=== PATIENT | male | born 1975 | race Caucasian/White ===

== ENCOUNTER 2017-12-26 02:10 | Emergency (ER) | payer SELFPAY ==
--- NOTE | 2017-12-26 02:23 | ED Physician Documentation ---
Chest Pain - HISTORIAN Historian: patient, paramedics - [facility] Chief Complaint: General Adult Onset: hours Timing: sudden onset Last known Well Date: 12/26/17 Last Known Well Time: 00:30 (between [id number]) Context: activity (sexual activity) Severity: moderate (5/10) Quality: pressure, tightness, sharp Chest Pain Radiation: arms (left) Chest Pain Signs/Symptoms: denies: nausea, vomiting Worsened By: exertion Relieved By: nothing Further Comments: yes (42 year old male patient brought in from [facility] with complaints of chest pain. Patient reports he began having chest pain after sexual intercourse between [id number]. Patient reports using a supplement called [employer]allyhood. Denies any other recreational drug use, denies ETOH intake tonight.) - ROS CONST: none MS/LYMPH: neck pain (chronic - related to surgery 4 months ago) GI/: none EYES/ENT: none SKIN/ENDO: none NEURO/PSYCH: none Comment: Patient denies any pain or complaints except as noted in Further comments. - PAST HX [place] risk factors: hypertension DVT/PE Risk Factors: none TAD/AAA risk factors: none Neuro deficit: none GI disease: none Lung disease: none Surgeries/Procedures: other (neck fusion - 4 months ago) Allergies/Adverse Reactions: Allergies Allergy/AdvReac Type Severity Reaction Status Date / Time No Known Allergies Allergy Verified 12/26/17 03:22 Home Medications: Ambulatory Orders Medication Instructions Recorded Unobtainable [Unobtainable] 12/26/17 - SOCIAL HX Smoking History: cigarettes - FAMILY HX Family HX: denies: none - REVIEWED ASSESSMENTS Nursing Assessment Reviewed: Yes Vitals Reviewed: Yes Progress - Progress Progress: Patient with intermittent aphasia; left sided weakness. Will answer some questions appropriately. Cannot tell current month or age. Cannot complete NIH stroke scale. Patient will not follow commands to complete; stares directly ahead. Narcan .4mg IV given - UDS positive for oxycodone, opiates, THC, TCA, Vomiting - clear emesis; zofran given IV. HR 150's 0315 Call to [facility] - discussed case with Dr Sigala, will transfer to [facility] as code stroke. Activase at [facility] only 50mg - not adequate amount for patient weight of 99.7 kg. 0330 Patient will now raise left arm, pushes and pulls with left arm; cannot raise left leg off bed. - EKG/XRAY/CT EKG: rhythm (ST, rate 101; no acute changes) ED Results Lab/Radiology - Radiology Radiology Impressions: CT brain noncontrast Date of study: 26 December 2017 CLINICAL HISTORY: LEFT SIDED WEAKNESS (Hx) / LEFT SIDE WEAKNESS (DICOM Hx) TECHNIQUE: 5 mm contiguous axial images of the brain, noncontrast. FINDINGS: There is no evidence of intracranial mass effect, hemorrhage, or acute hydrocephalus. The lateral ventricles are symmetrical and the 4th ventricle is midline without shift. No acute brain parenchymal changes or extra-axial fluid collections are identified. The posterior fossa contents are within normal limits. The calvarium is intact. The visualized sinuses and mastoid air cells are clear. IMPRESSION: No acute intracranial process. Electronically signed on Dec 26, 2017 2:48:54 AM CDT by: Tristen Vallecillo - Orders Orders: ED Orders Category Date Time Status Continuous EKG monitoring Q30M Care 12/26/17 02:15 Ordered Continuous Pulse Oximetry Q30M Care 12/26/17 02:[address] IV Lock 1T Care 12/26/17 02:15 Ordered CBC/PLATELET/DIFF Stat Lab 12/26/17 02:15 Ordered CMP Stat Lab 12/26/17 02:15 Ordered TROPONIN I (cTnI) Stat Lab 12/26/17 02:15 Ordered UA W/MICRO IF INDICATED Stat Lab 12/26/17 02:15 Ordered Urine drug screen [DRUG SCREEN URINE MEDICAL ONLY] Stat Lab 12/26/17 02:15 Ordered 0.9 % Sodium Chloride [Normal Saline] 1,000 ml Med 12/26/17 02:15 Ordered IV NOW Oxygen Daily Oxygen 12/26/17 02:15 Ordered Chest Pain Physical Exam - EXAM General Appearance: no acute distress, alert EENT: eye inspection normal, ROMI (5mm - sluggish) Respiratory: no resp. distress, chest non-tender, nml breath sounds CVS: reg. 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 ) Neuro: oriented X3, CN's nml as tested, motor nml, sensation nml, mood/affect nml Discharge Clincal Impression: Left-sided weakness, Positive urine drug screen Altered mental status Qualifiers: Altered mental status type: disorientation Qualified Code(s): R41.0 - Disorientation, unspecified Referrals: Primary Doctor,No [Primary Care Provider] - 2 Days Condition: Critical Disposition: 02 XFER S[facility]-TRM HOSP Decision to Admit: NO Decision Time: 03:30
[2017-12-26] MEDS: 0.9 % SODIUM CHLORIDE 1,000 ML IV ONE (02:30)
[2017-12-26] MEDS: NALOXONE HCL 0.4 MG/ML AMP IVP ONE (02:55)
[2017-12-26 02:58] LABS: BASOPHILS % 0.5 (0.0-1.5); EOSINOPHILS % 6.2 % (0.0-6.8); MEAN CORPUSCULAR HEMOGLOBIN 30.2 pg (28.0-34.0); MEAN CORPUSCULAR VOLUME 84.4 fl (80.0-100.0); MONOCYTES % 5.7 % (0.0-11.0); NEUTROPHILS # 4.6 # k/uL (1.4-7.7)
[2017-12-26] MEDS: ONDANSETRON HCL/PF 4 MG/ 2ML VIAL IVP ONE (03:02)
[2017-12-26] MEDS: ONDANSETRON HCL/PF 4 MG/ 2ML VIAL ONE (03:15)
[2017-12-26 03:31] LABS: eGFR (African) > 60; eGFR (Non-African) > 60
[2017-12-26 03:49] VITALS: BP 177/106
--- NOTE | 2017-12-26 05:44 | Diagnostic Imaging Report ---
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 [place], [place]. [address] Report Submission Date: Dec 26, 2017 2:48:54 AM CDT Patient Study Name: SARBJIT DESIR Date: Dec 26, 2017 2:33:22 AM CDT Modality Type: CT\SR Gender: M Description: CT HEAD W/O CONTRAST : 71 Institution: [facility] Physician: NEHA SIDDIQUI) - ER CT brain noncontrast Date of study: 26 December 2017 CLINICAL HISTORY: LEFT SIDED WEAKNESS (Hx) / LEFT SIDE WEAKNESS (DICOM Hx) TECHNIQUE: 5 mm contiguous axial images of the brain, noncontrast. FINDINGS: There is no evidence of intracranial mass effect, hemorrhage, or acute hydrocephalus. The lateral ventricles are symmetrical and the 4th ventricle is midline without shift. No acute brain parenchymal changes or extra-axial fluid collections are identified. The posterior fossa contents are within normal limits. The calvarium is intact. The visualized sinuses and mastoid air cells are clear. IMPRESSION: No acute intracranial process. Electronically signed on Dec 26, 2017 2:48:54 AM CDT by: Tristen LORENZO
[2017-12-26 06:09] LABS: CANNABINOIDS NON NEGATIVE ng/mL (< 50); METHYLENEDIOXYMETHAMPHETAMINE NEGATIVE ng/mL (<500)
== END 2017-12-26 03:30 | disposition short-term general hospital (02) ==
LOC: ED 02:10
DX: R41.0 Disorientation, unspecified (principal); F12.90 Cannabis use, unspecified, uncomplicated; F11.90 Opioid use, unspecified, uncomplicated; F15.90 Other stimulant use, unspecified, uncomplicated; F19.90 Other psychoactive substance use, unspecified, uncomplicated; R07.89 Other chest pain
CPT/HCPCS: 70450; 80053; 80320; 80377; 84484; 85025; 85730; J2310; J2405; J7030; 96365; 96375; 99284; G0480; G0481; S1016